=== PATIENT | female | born 1955 | race Caucasian/White ===

== ENCOUNTER 2017-05-07 01:04 | Emergency (ER) | payer MEDICAID ==
[~2017-05-07 01:04] MED LIST: ASPIRIN ADULT L81 M5 PO; DIOVAN160 MG PO; HYDROCHLOROTHIA25 MG PO; LISINOPRIL10 MG PO; METOPROLOL TART25 M1 PO; MOTRIN800 MG PO; OYSCO 500500 M1 PO; PAX20 PO; PRI20 PO; TRENTAL400 MG PO; ZOCOR10 MG PO
[2017-05-07 02:23] LABS: CARBON DIOXIDE 25.2 mmol/L (21-32); CHLORIDE SERUM 107 mmol/L (98-107); CREATININE SERUM 0.7 mg/dL (0.6-1.0); GFR1 > 60 mL/min; GLUCOSE SERUM 114 mg/dL (74-106); POTASSIUM SERUM 4.4 mmol/L (3.5-5.1); SODIUM SERUM 140 mmol/L (136-145)
[2017-05-07 02:26] LABS: ALBUMIN 3.5 g/dL (3.4-5.0); ALKALINE PHOSPHATASE 116 U/L (46-116); ALT/SGPT 27 U/L (14-59); AST/SGOT 26 U/L (15-37); BILIRUBIN TOTAL 0.4 mg/dL (0.20-1.00); TOTAL PROTEIN, SERUM 7.3 g/dL (6.4-8.2)
[2017-05-07 02:34] LABS: BASOPHIL % 0.8 % (0-2); PLATELET COUNT 281 x10^3mcL (130-400)
[2017-05-07 02:35] LABS: RED CELL DISTRIBUTION WIDTH 14.8 % (11.5-14.5)
[2017-05-07 02:41] LABS: microscopic required? NO
[2017-05-07 02:51] LABS: urine erythrocyte NEGATIVE (NEGATIVE)
[2017-05-07 03:34] VITALS: BP 145/80
== END 2017-05-07 03:15 | disposition home or self-care (01) ==
LOC: ED 01:04
PROVIDERS: Emergency Medicine
DX: K12.0 Recurrent oral aphthae (principal); B34.9 Viral infection, unspecified; E78.00 Pure hypercholesterolemia, unspecified; I10 Essential (primary) hypertension; E11.9 Type 2 diabetes mellitus without complications; Z79.899 Other long term (current) drug therapy
CPT/HCPCS: 36415

== ENCOUNTER 2017-07-30 16:25 | Emergency (ER) | payer MEDICAID ==
[2017-07-30 18:02] LABS: BASOPHIL % 0.6 % (0-2); PLATELET COUNT 262 x10^3mcL (130-400)
[2017-07-30 18:06] LABS: CALCIUM 8.5 mg/dL (8.5-10.1); CARBON DIOXIDE 24.1 mmol/L (21-32); CHLORIDE SERUM 107 mmol/L (98-107); CREATININE SERUM 0.6 mg/dL (0.6-1.0); GFR1 > 60 mL/min; GLUCOSE SERUM 97 mg/dL (74-106); POTASSIUM SERUM 3.9 mmol/L (3.5-5.1); SODIUM SERUM 141 mmol/L (136-145)
[2017-07-30 18:10] LABS: ALKALINE PHOSPHATASE 98 U/L (46-116); ALT/SGPT 24 U/L (14-59); AST/SGOT 24 U/L (15-37); BILIRUBIN TOTAL 0.2 mg/dL (0.20-1.00); CHOLESTEROL 194 mg/dL (<200); HDL CHOLESTEROL 48 mg/dL (40-60); PHOSPHOROUS 3.9 mg/dL (2.5-4.9)
[2017-07-30 18:11] LABS: ALBUMIN 3.2 g/dL (3.4-5.0)
[2017-07-30 19:40] VITALS: BP 155/96
== END 2017-07-30 19:38 | disposition home or self-care (01) ==
LOC: ED 16:25
PROVIDERS: Emergency Medicine
DX: R07.89 Other chest pain (principal); I10 Essential (primary) hypertension; E11.9 Type 2 diabetes mellitus without complications; E78.00 Pure hypercholesterolemia, unspecified
CPT/HCPCS: 36415; 83880; J1885

== ENCOUNTER 2019-03-26 15:35 | Emergency (ER) | payer OTHER, MEDICAID ==
[~2019-03-26] VITALS: Ht 160 cm; Wt 85.3 kg
[2019-03-26 15:56] VITALS: Ht 160 cm; Wt 85.3 kg
[2019-03-26 20:09] VITALS: BP 114/66
== END 2019-03-26 20:09 | disposition home or self-care (01) ==
LOC: ED 15:35
DX: R51 Headache (principal); R11.2 Nausea with vomiting, unspecified; H57.89 Other specified disorders of eye and adnexa; H53.149 Visual discomfort, unspecified; I10 Essential (primary) hypertension; E11.9 Type 2 diabetes mellitus without complications; E78.00 Pure hypercholesterolemia, unspecified; F41.9 Anxiety disorder, unspecified
CPT/HCPCS: J1200; J1885; J2765; J7030

== ENCOUNTER 2019-05-01 23:34 | Emergency (ER) | payer OTHER, MEDICAID ==
[~2019-05-01] VITALS: Ht 165.1 cm; Wt 87.3 kg
[2019-05-01 23:40] VITALS: Ht 165.1 cm; Wt 87.3 kg
[2019-05-02 00:21] LABS: BASOPHIL % 0.6 % (0-2); CALCIUM 8.3 mg/dL (8.5-10.1); CHLORIDE SERUM 108 mmol/L (98-107); CREATININE SERUM 0.6 mg/dL (0.6-1.0); GFR1 > 60 mL/min; GLUCOSE SERUM 103 mg/dL (74-106); PLATELET COUNT 258 x10^3mcL (130-400); POTASSIUM SERUM 4.4 mmol/L (3.5-5.1); RED CELL DISTRIBUTION WIDTH 14.4 % (11.5-14.5); SODIUM SERUM 143 mmol/L (136-145)
[2019-05-02 00:25] LABS: ALKALINE PHOSPHATASE 93 U/L (46-116); ALT/SGPT 21 U/L (14-59); AST/SGOT 23 U/L (15-37); BILIRUBIN TOTAL 0.2 mg/dL (0.20-1.00); TOTAL PROTEIN, SERUM 6.7 g/dL (6.4-8.2)
[2019-05-02 00:27] LABS: ALBUMIN 3.3 g/dL (3.4-5.0)
[2019-05-02 01:03] VITALS: BP 158/90
== END 2019-05-02 01:03 | disposition home or self-care (01) ==
LOC: ED 23:34
PROVIDERS: Emergency Medicine
DX: I16.0 Hypertensive urgency (principal); R07.89 Other chest pain; F41.9 Anxiety disorder, unspecified; E78.00 Pure hypercholesterolemia, unspecified
CPT/HCPCS: 36415; Q0092